=== PATIENT | male | born 1960 | race Caucasian/White ===

== ENCOUNTER 2016-09-21 09:09 | Inpatient (IN) | payer OTHER ==
[~2016-09-21] VITALS: Wt 67.4 kg
[2016-09-21] MEDS ORDERED: FURO20TA3 PO (10:13)
[2016-09-21] MEDS ORDERED: HYDR-3671 PO (10:14)
[2016-09-21 10:47] LABS: ADD SCAN DIFF NO
[2016-09-21 10:55] LABS: BASOPHILS % 0.3 % (0.0-2.0); EOSINOPHILS # 0.1 10^3/ul (0.0-0.5); EOSINOPHILS % 1.9 % (0.0-7.0); HEMATOCRIT 35.1 % (42.0-52.0); HEMOGLOBIN 11.8 g/dl (14.0-18.0); LYMPHOCYTES # 0.8 10^3/ul (0.8-2.9); LYMPHOCYTES % 25.6 % (15.0-51.0); MEAN CORPUSCULAR HEMOGLOBIN 32.6 pg (29.0-33.0); MEAN CORPUSCULAR HGB CONC 33.6 g/dl (32.0-37.0); MEAN PLATELET VOLUME 9.1 fl (7.4-10.4); MONOCYTE # 0.3 10^3/ul (0.3-0.9); MONOCYTES % 8.6 % (0.0-11.0); NEUTROPHIL # 2.1 10^3/ul (1.6-7.5); NEUTROPHILS % 63.3 % (39.0-77.0); PLATELET COUNT 138 10^3/UL (140-415); RED BLOOD COUNT 3.62 10^6/ul (4.70-6.10); RED CELL DISTRIBUTION WIDTH 15.1 % (11.5-14.5); WHITE BLOOD COUNT 3.2 10^3/ul (4.8-10.8)
[2016-09-21 11:29] LABS: POTASSIUM 3.6 mmol/L (3.5-5.1)
[2016-09-21 11:32] LABS: CALCIUM 8.5 mg/dl (8.4-10.2); CREATININE 0.69 mg/dl (0.61-1.24)
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
[2016-09-21] MEDS ORDERED: LOPERAMIDE 2 MG CAP PO ONE (15:00)
[2016-09-21] MEDS ORDERED: ACETAMINOPHEN 325 MG TAB PO PRN (15:30)
[2016-09-21] MEDS ORDERED: ONDANSETRON 4 MG INJ IV PRN ×2 (15:30→18:00)
[2016-09-21 16:30] VITALS: TEMP 98.6
--- NOTE | 2016-09-21 17:32 | HP ---
Date/Time of Note Date/Time of Note DATE: 09/21/16 TIME: 17:21 Assessment/Plan VTE Prophylaxis VTE Prophylaxis Intervention: heparin Assessment/Plan Assessment/Plan 55yo M with 1. Chronic Leg ulcer 2. Severe uncontrolled profuse diarrhea 3. Hepatitis C 4. Homeless 5. Leukopenia and thrombocytopenia PLAN: * admit / stool cultures / c-diff / empiric oral flagyl * podiatry and wound care consults / wound cultures / no abx for now * case mgt for placement * IVF and supportive care Prophylaxis: heparin and pepcid HPI/ROS Admit Date/Time Admit Date/Time 09/21/16 Hx of Present Illness PRESENTING COMPLAINT: Uncontrolled severe diarrhea HISTORY OF PRESENTING COMPLAINT: 55-year-old homeless male who states he lives on the streets came to the emergency room today because of severe diarrhea that he cannot control. He has had a leg ulcer on his left leg for a long time. Note that the history is very sketchy at this time because the patient has just had a large profuse bowel movement that he could not control and is extremely foul-smelling and as such the patient wants this to be taken care of before he would speak further. But apparently has had this when his left leg for a long time he was just seen in the emergency room at [facility] and discharged. He was down antibiotics. The timing of his diarrhea is not also clear however patient does report that he cannot control it and it is watery and foul- smelling he denies fever though he has been feeling very lethargic and weak and as such she is here in the emergency room. He is requesting a wheelchair to help him when he is being discharged. ROS 12 point review if systems was done and pertinent findings are as noted. PMH/Family/Social Past Medical History * Leg ulcer * hep C Past Surgical History Past Surgical Hx: no surgical history Family History Significant Family History: no pertinent family hx Social History Drug Use: marijuana, other (prev drug use) Exam/Review of Systems Vital Signs Vitals Vital Signs Date Time Temp Pulse Resp B/P Pulse Ox O2 Delivery O2 Flow Rate FiO2 09/21/16 16:30 98.6 77 18 132/77 98 Room Air Exam Exam GENERAL: Patient is asthenic, alert and oriented, anxious about continued diarrhea, has just had an episode. HEENT: Oropharynx is clear. There is no carotid bruit, no masses. Patient's pupils are equal, round and reactive to light bilaterally. Extraocular motions are intact. There is no scleral icterus. There is no facial asymmetry. NECK: Supple. LUNGS: Clear to auscultation bilaterally with good air entry. No Wheezes or crackles. HEART: S1, S2. No murmur, gallops or rubs. Regular rate and rhythm. ABDOMEN: Soft, nontender. Normoactive bowel sounds. There are no stigmata of chronic liver disease. BACK: no costovertebral angle tenderness. GENITOURINARY: Deferred. EXTREMITIES: Left lower extremity: Large open wound approximately 23 x 8 cm lateral lower leg above the ankle. Granulation tissue with a minimal amount of clear drainage but no purulent discharge. Mild tenderness. No fluctuance or subcutaneous crepitus. 3+ foot swelling. NEUROLOGIC: The patient has no lateralizing signs. Cranial nerves II-XII are intact. SKIN: Otherwise, unremarkable. Labs Result Diagram: 09/21/16 1030 09/21/16 1030 Procedures Procedures Laboratory Tests Test 09/21/16 10:30 White Blood Count 3.210^3/ul Red Blood Count 3.6210^6/ul Hemoglobin 11.8g/dl Hematocrit 35.1% Mean Corpuscular Volume 97.0fl Mean Corpuscular Hemoglobin 32.6pg Mean Corpuscular Hemoglobin Concent 33.6g/dl Red Cell Distribution Width 15.1% Platelet Count 49673^3/UL Mean Platelet Volume 9.1fl Neutrophils % 63.3% Lymphocytes % 25.6% Monocytes % 8.6% Eosinophils % 1.9% Basophils % 0.3% Nucleated Red Blood Cells % 0.0/100WBC Neutrophils # 2.110^3/ul Lymphocytes # 0.810^3/ul Monocytes # 0.310^3/ul Eosinophils # 0.110^3/ul Basophils # 0.010^3/ul Nucleated Red Blood Cells # 0.010^3/ul Sodium Level 140mmol/L Potassium Level 3.6mmol/L Chloride Level 105mmol/L Carbon Dioxide Level 26mmol/L Anion Gap 13 Blood Urea Nitrogen 12mg/dl Creatinine 0.69mg/dl Glucose Level 94mg/dl Calcium Level 8.5mg/dl Current Medications Medications (Trade) Dose Ordered Sig/Moises Route PRN Reason Start Time Stop Time Status Last Admin Dose Admin Loperamide HCl (Imodium Cap) 4 mg ONCE ONCE PO 09/21/16 15:00 09/21/16 15:01 DC 09/21/16 15:14 4 MG Ondansetron HCl (Zofran Inj) 4 mg BRIDGE ORDER PRN IV NAUSEA AND/OR VOMITING 09/21/16 15:30 09/22/16 15:29 Acetaminophen (Tylenol Tab) 650 mg ER BRIDGE PRN PO MILD PAIN/FEVER 09/21/16 15:30 09/22/16 15:29 BRYCE MONTALVO September 21, 2016 17:31
[2016-09-21 18:15] VITALS: BP 133/72; PULSE 64; RESP 16
[2016-09-21] MEDS ORDERED: HYDR-842 PO (18:35)
[2016-09-21 18:50] LABS: ALBUMIN 2.8 g/dl (3.3-4.9); BILIRUBIN,INDIRECT 0.2 mg/dl (0-1.1); BILIRUBIN,TOTAL 0.2 mg/dl (0.2-1.3); TOTAL PROTEIN 6.8 g/dl (6.1-8.1)
[2016-09-21] MEDS: SOD CHLORIDE 0.9% 1,000 ML IV SCH (21:00)
[2016-09-21] MEDS: metroNIDAZOLE 500 MG TAB PO SCH (22:00)
[2016-09-22] MEDS: FAMOTIDINE 20 MG TAB PO SCH ×4 (01:12→21:41)
[2016-09-22] MEDS: morphine 2 MG INJ IV PRN ×3 (01:20→20:25)
[2016-09-22] MEDS: SOD CHLORIDE 0.9% 1,000 ML IV SCH ×4 (01:30→18:28)
[2016-09-22 03:03] LABS: COCAINE NEGATIVE (NEGATIVE)
[2016-09-22 03:06] LABS: BARBITURATES Negative (NEGATIVE); BENZODIAZEPINES Negative (NEGATIVE)
[2016-09-22 03:07] LABS: OPIATES Negative (NEGATIVE)
[2016-09-22 03:21] LABS: CANNABINOIDS Positive (NEGATIVE)
[2016-09-22] MEDS: metroNIDAZOLE 500 MG TAB PO SCH ×4 (06:00→21:41)
[2016-09-22] MEDS ORDERED: PENDING SANTYL ORDER FOR WOUND CARE XX PRN (07:30)
[2016-09-22] MEDS ORDERED: COLLAGENASE 30 GM TUBE TOP PRN (07:30)
[2016-09-22] MEDS: COLLAGENASE 30 GM TUBE TOP SCH (09:00)
--- NOTE | 2016-09-22 09:30 | PN ---
Date/Time of Note Date/Time of Note DATE: 09/22/16 TIME: 09:30 Assessment/Plan VTE Prophylaxis VTE Prophylaxis Intervention: ambulation Lines/Catheters IV C[facility]ter Type [facility] Saline Lock Assessment/Plan Assessment/Plan 55yo M with 1. Chronic Leg ulcer 2. Severe uncontrolled profuse diarrhea: C-diff negative 3. Hepatitis C Cirrhosis 4. Homeless 5. Leukopenia and thrombocytopenia 6. Marijuana user 7. Imodium abuse? : per patient he takes imodium every day for the last 4 years 8. Non compliance PLAN: * Continue IVF / PO flagyl * Will get GI consult / no imodium for now / Patient may be having a rebound diarrhea * Continue supportive care Subjective 24 Hr Interval Summary Gastrointestinal: diarrhea Exam/Review of Systems Vital Signs Vitals Vital Signs Date Time Temp Pulse Resp B/P Pulse Ox O2 Delivery O2 Flow Rate FiO2 09/21/16 18:15 98.8 64 16 133/72 98 Room Air Intake and Output 09/21/16 09/21/16 09/22/16 15:00 23:00 07:00 Intake Total 340 ml Output Total 1000 ml Balance -660 ml Exam GENERAL: Patient is asthenic, alert and oriented, anxious about continued diarrhea HEENT: Oropharynx is clear. There is no carotid bruit, no masses. Patient's pupils are equal, round and reactive to light bilaterally. Extraocular motions are intact. There is no scleral icterus. There is no facial asymmetry. NECK: Supple. LUNGS: Clear to auscultation bilaterally with good air entry. No Wheezes or crackles. HEART: S1, S2. No murmur, gallops or rubs. Regular rate and rhythm. ABDOMEN: Soft, nontender. Normoactive bowel sounds. There are no stigmata of chronic liver disease. BACK: no costovertebral angle tenderness. GENITOURINARY: Deferred. EXTREMITIES: Left lower extremity: Large open wound approximately 23 x 8 cm lateral lower leg above the ankle. Granulation tissue with a minimal amount of clear drainage but no purulent discharge. Mild tenderness. No fluctuance or subcutaneous crepitus. 3+ foot swelling. NEUROLOGIC: The patient has no lateralizing signs. Cranial nerves II-XII are intact. SKIN: Otherwise, unremarkable. PSYCH: belligerent and demanding for imodium, uncooperative Results Result Diagram: 09/21/16 1030 09/21/16 1030 Results 24 hrs Laboratory Tests Test 09/21/16 10:30 09/21/16 16:30 09/22/16 01:30 White Blood Count 3.2 L Red Blood Count 3.62 L Hemoglobin 11.8 L Hematocrit 35.1 L Mean Corpuscular Volume 97.0 Mean Corpuscular Hemoglobin 32.6 Mean Corpuscular Hemoglobin Concent 33.6 Red Cell Distribution Width 15.1 H Platelet Count 138 L Mean Platelet Volume 9.1 Neutrophils % 63.3 Lymphocytes % 25.6 Monocytes % 8.6 Eosinophils % 1.9 Basophils % 0.3 Nucleated Red Blood Cells % 0.0 Neutrophils # 2.1 Lymphocytes # 0.8 Monocytes # 0.3 Eosinophils # 0.1 Basophils # 0.0 Nucleated Red Blood Cells # 0.0 Sodium Level 140 Potassium Level 3.6 Chloride Level 105 Carbon Dioxide Level 26 Anion Gap 13 Blood Urea Nitrogen 12 Creatinine 0.69 Glucose Level 94 Calcium Level 8.5 Total Bilirubin 0.2 Direct Bilirubin 0.00 Indirect Bilirubin 0.2 Aspartate Amino Transf (AST/SGOT) 79 H Alanine Aminotransferase (ALT/SGPT) 65 Alkaline Phosphatase 210 H Total Protein 6.8 Albumin 2.8 L Urine Opiates Screen Negative Urine Barbiturates Negative Urine Amphetamines Screen NEGATIVE Urine Benzodiazepines Screen Negative Urine Cocaine Screen NEGATIVE Urine Cannabinoids Positive Medications Medications Current Medications Metronidazole 500 mg 500 mg Q8 PO ; Start 09/21/16 at 17:30 Sodium Chloride (NS) 1,000 ml @ 125 mls/hr Q8H IV ; Start 09/21/16 at 17:30 Famotidine (Pepcid) 20 mg BID PO Last administered on 09/22/16 01:12; Admin Dose 20 MG; Start 09/21/16 at 21:00 Ondansetron HCl (Zofran Inj) 4 mg Q6H PRN IV NAUSEA AND/OR VOMITING; Start 09/21 at 18:00 Morphine Sulfate (morphine) 2 mg Q4H PRN IV PAIN Last administered on 09/22/16 01:20; Admin Dose 2 MG; Start 09/21/16 at 19:30 Collagenase (Santyl) 1 applic DAILY TOP ; Start 09/22/16 at 09:00 Collagenase (Santyl) 1 applic PRN PRN TOP WOUND CARE; Start 09/22/16 at 07:30 BRYCE MONTALVO September 22, 2016 09:30
[2016-09-22 14:56] LABS: ADD SCAN DIFF NO
[2016-09-22 14:58] LABS: BASOPHILS % 0.5 % (0.0-2.0); EOSINOPHILS # 0.1 10^3/ul (0.0-0.5); EOSINOPHILS % 1.6 % (0.0-7.0); HEMATOCRIT 37.6 % (42.0-52.0); HEMOGLOBIN 12.9 g/dl (14.0-18.0); LYMPHOCYTES # 1.2 10^3/ul (0.8-2.9); MEAN CORPUSCULAR HEMOGLOBIN 32.8 pg (29.0-33.0); MEAN CORPUSCULAR HGB CONC 34.3 g/dl (32.0-37.0); MEAN CORPUSCULAR VOLUME 95.7 fl (82.0-101.0); MEAN PLATELET VOLUME 8.8 fl (7.4-10.4); MONOCYTE # 0.3 10^3/ul (0.3-0.9); MONOCYTES % 7.3 % (0.0-11.0); NEUTROPHIL # 2.6 10^3/ul (1.6-7.5); NEUTROPHILS % 62.1 % (39.0-77.0); PLATELET COUNT 192 10^3/UL (140-415); RED BLOOD COUNT 3.93 10^6/ul (4.70-6.10); RED CELL DISTRIBUTION WIDTH 15.6 % (11.5-14.5); WHITE BLOOD COUNT 4.3 10^3/ul (4.8-10.8)
[2016-09-22 15:25] LABS: CREATININE 0.8 mg/dl (0.61-1.24)
[2016-09-22] MEDS ORDERED: LACTULOSE 30ML CUP PO PRN (19:00)
[2016-09-22] MEDS ORDERED: HYDROCODONE/APAP (5/325) TAB PO PRN (19:30)
[2016-09-22] MEDS ORDERED: POLYETHYLENE GLYCOL 3350 119 GM POWDER PO ONE (20:00)
[2016-09-22] MEDS ORDERED: PEG/ELECTROLYTES 4L BTL PO ONE (20:00)
--- NOTE | 2016-09-22 20:58 | CONS ---
DATE OF ADMISSION: 09/21/2016 DATE OF CONSULTATION: TYPE OF CONSULTATION: Gastroenterology. Dear Dr. Montalvo: Thank you for asking me to see Mr. Pickard in GI consultation. HISTORY OF PRESENT ILLNESS: The patient, as you know, is a 55-year-old white gentleman who is admit dawood to the hospital because of a nonhealing persistent ulcer in the left leg. GI consultation is re quested because of the chronic diarrhea, which he has been having for the past 4 years. He has up t o 6 to 8 to 10 bowel movements a day, loose and watery. No blood in the stools. No lactose intoler ance. He has history of hepatitis C. The stool has been negative for C. difficile toxin this hospi talization. MEDICATIONS: At home includes: 1. Atarax. 2. Furosemide. 3. Imodium. SOCIAL HISTORY: He works as an electrician office. He does not smoke or drink. He smokes marijuana. He is single, not , transsexual. PAST SURGICAL HISTORY: He had a cholecystectomy. PHYSICAL EXAMINATION: GENERAL: The patient is a 55-year-old white gentleman who at this time is alert, well built, is bruce l. VITAL SIGNS: Afebrile. CARDIOVASCULAR: Normal heart sounds. RESPIRATORY: Normal breath sounds. ABDOMEN: Showed unremarkable findings. EXTREMITIES: Left leg shows severe ulcer, which is covered with a Band-Aid at this time. LABORATORY WORKUP: Potassium 4.0 as of today. ALT 79, AST 65, alkaline phosphatase 210. WBC count 4300, hemoglobin 12.9, platelet 192,000. No imaging studies are available. CLINICAL IMPRESSION: Chronic diarrhea. Clostridium difficile is negative. Etiology is not very cl ear. He could have inflammatory bowel disease. He could have a colorectal neoplasm, diverticulitis , doubt opportunistic infections. He does have hepatitis C. Small bowel disease, chronic pancreatitis should all be ruled out. Rule out parasitic causes as wel l. PLAN: At this time, proceed with a colonoscopy. I will give further recommendations after the col onoscopy. Dictated By: ADRIANE MEJIA MD NC/NTS Conf#: [id number] DID#: [id number] CC: ADRIANE MEJIA MD; BRYCE MONTALVO MD;*EndCC*
[2016-09-22] MEDS: LORAZEPAM 2 MG INJ IV PRN (21:35)
[2016-09-22] MEDS: LACTULOSE 30ML CUP PO SCH ×2 (21:40→23:00)
[2016-09-23] MEDS: LACTULOSE 30ML CUP PO SCH ×5 (01:00→22:48)
[2016-09-23] MEDS: morphine 2 MG INJ IV PRN ×4 (01:26→18:44)
[2016-09-23] MEDS: SOD CHLORIDE 0.9% 1,000 ML IV SCH ×3 (01:30→19:03)
[2016-09-23] MEDS: LORAZEPAM 2 MG INJ IV PRN ×2 (02:20→21:26)
[2016-09-23] MEDS: metroNIDAZOLE 500 MG TAB PO SCH ×3 (06:00→21:34)
[2016-09-23 08:00] VITALS: BP 98/55; RESP 16
[2016-09-23] MEDS: FAMOTIDINE 20 MG TAB PO SCH ×2 (09:00→21:27)
[2016-09-23] MEDS: COLLAGENASE 30 GM TUBE TOP SCH (09:00)
[2016-09-23] MEDS ORDERED: METR500T PO (09:21)
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
[2016-09-23 14:54] LABS: ADD SCAN DIFF NO
[2016-09-23 14:56] LABS: BASOPHILS % 0.5 % (0.0-2.0); EOSINOPHILS # 0.1 10^3/ul (0.0-0.5); HEMOGLOBIN 12.1 g/dl (14.0-18.0); LYMPHOCYTES # 1.3 10^3/ul (0.8-2.9); MEAN CORPUSCULAR HGB CONC 34.6 g/dl (32.0-37.0); MEAN CORPUSCULAR VOLUME 95.4 fl (82.0-101.0); MEAN PLATELET VOLUME 8.6 fl (7.4-10.4); MONOCYTE # 0.4 10^3/ul (0.3-0.9); MONOCYTES % 8.8 % (0.0-11.0); NEUTROPHIL # 2.3 10^3/ul (1.6-7.5); NEUTROPHILS % 56.2 % (39.0-77.0); PLATELET COUNT 169 10^3/UL (140-415); RED BLOOD COUNT 3.67 10^6/ul (4.70-6.10); RED CELL DISTRIBUTION WIDTH 15.4 % (11.5-14.5)
[2016-09-23 15:10] LABS: POTASSIUM 3.5 mmol/L (3.5-5.1)
[2016-09-23 15:12] LABS: INR 0.97; PROTIME 12.9 Sec (12.2-14.2)
[2016-09-23 15:13] LABS: CREATININE 0.83 mg/dl (0.61-1.24); PARTIAL THROMBOPLASTIN TIME 33.8 Sec (25.0-35.0)
[2016-09-23 15:14] LABS: CALCIUM 8.6 mg/dl (8.4-10.2)
[2016-09-23] MEDS ORDERED: POTASSIUM CHLORIDE (SR) 10 MEQ TAB PO SCH (18:30)
[2016-09-23] MEDS ORDERED: POLYETHYLENE GLYCOL 17 GM PACKET PO ONE (18:30)
[2016-09-23] MEDS ORDERED: POTASSIUM CHLORIDE 50 ML IVPB PRN (18:30)
--- NOTE | 2016-09-23 18:40 | PN ---
DATE: HISTORY OF PRESENT ILLNESS: The patient is a 55-year-old white gentleman seen by me yesterday sb woodruff of chronic diarrhea. Yesterday, he agreed to have a colonoscopy, but today he refused to have a colonoscopy. Apparently, the patient has been uncooperative and he is abusive to the nurses and to the staff members; however, upon discussion from the social welfare administrator, the patient has agreed for a col onoscopy. CLINICAL IMPRESSION: Chronic diarrhea, etiology unknown, rule out inflammatory bowel disease, ische will colitis, colorectal neoplasm. PLAN: Colonoscopy. The patient agrees. Dictated By: ADRIANE KIRKLAND/JOSE C Conf#: [id number] DID#: [id number]
[2016-09-24] MEDS: SOD CHLORIDE 0.9% 1,000 ML IV SCH ×2 (01:30→09:10)
[2016-09-24] MEDS: morphine 2 MG INJ IV PRN ×2 (01:53→12:04)
[2016-09-24] MEDS: metroNIDAZOLE 500 MG TAB PO SCH ×2 (06:00→14:15)
[2016-09-24] MEDS: COLLAGENASE 30 GM TUBE TOP SCH (09:00)
[2016-09-24] MEDS: FAMOTIDINE 20 MG TAB PO SCH (09:00)
--- NOTE | 2016-09-24 11:59 | CONS ---
DATE OF ADMISSION: 09/21/2016 DATE OF CONSULTATION: CHIEF COMPLAINT: Diarrhea. The patient has history of chronic diarrhea, unresponsive to routine therapy. Stool is negative for C. difficile toxin. The patient continues to have diarrhea. PHYSICAL EXAMINATION: GENERAL: The patient appears alert, not in distress. Potassium 3.6 yesterday. The imaging studies not done. IMPRESSION: Chronic diarrhea. Patient was advised to have a colonoscopy despite several efforts to make him undergo colonoscopy, h e has refused a colonoscopy. PLAN: Recommend further workup. He can probably go to another center for a second opinion. Dictated By: ADRIANE MEJIA MD NC/NTS Conf#: [id number] DID#: [id number] CC: BRYCE MONTALVO MD;*EndCC*
[2016-09-24] MEDS ORDERED: LOPERAMIDE 2 MG CAP PO PRN (13:00)
[2016-09-24] MEDS ORDERED: METAM PO (13:08)
[2016-09-24] MEDS ORDERED: IMO2 PO (13:08)
[2016-09-24] MEDS ORDERED: PSYLLIUM (SUGAR FREE) PACKET PO SCH (21:00)
[2016-09-24] MEDS ORDERED: PSYLLIUM 28% PACKET PO SCH (21:00)
--- NOTE | 2016-09-25 05:50 | DS ---
DATE OF ADMISSION: 09/21/2016 DATE OF DISCHARGE: 09/24/2016 PRIMARY CARE PHYSICIAN: Unknown. APNS: Dr. Hannah DIAGNOSIS ON ADMISSION: Chronic diarrhea. DIAGNOSES ON DISCHARGE: 1. Chronic diarrhea. 2. Nonadherence. 3. Chronic hepatitis C. 4. Chronic left leg ulcer. 5. Substance abuse, marijuana and tobacco. 6. Leukopenia. HOSPITAL COURSE: This is a nonadherent 55-year-old gentleman who presents with chronic diarrhea. Radha segovia refused colonoscopy. He is stable and fit for discharge. There is no evidence of GI bleed, fever, or abdominal pain. He is hungry and wants to eat and is to lerating diet. No acute abdominal issues. The etiology is undetermined. He is 55 years of age. Radha segovia denies any issues with milk, but I am not so sure. The differential includes colon cancer, and he was instructed by ourselves and gastrology to proceed with colonoscopy, but he refuses. Other etio logy include inflammatory bowel disease, diverticular disease, potentially opportunistic infections, chronic pancreatitis, small bowel disease, and parasitic diseases. At this point, the patient refu ses to believe he has any other issues. He believes this is chronic hepatitis C. Definitive testin g at this time has been negative. The patient has been completely nonadherence to instructions. He has been belligerent with staff, s till smoking in the hospital room, cursing, throwing furniture and stool at the staff. There is no reason for him to remain in the hospital. He does not wish to have any further testing. He is medi gabriela stable and fit for discharge. He was also seen by transition social worker and case management manager. He was o ffered multiple discharge options. He is awake, alert, ambulatory. DISCHARGE PLAN: The patient will be discharged. He may follow up with his primary care physician a s he wants or as he chooses. He may follow up with GI of his choice should he decide he wants a col onoscopy. DIET: Regular. ACTIVITY: As before. ALLERGIES: NO KNOWN DRUG ALLERGIES. CODE STATUS: FULL. CONDITION: Stable. REASON FOR ADMISSION: Chronic diarrhea. PENDING TESTS: None. FUNCTIONAL STATUS: The patient is awake, alert, and aware of his disposition. LABORATORY DATA: White cell count of 4, hemoglobin and hematocrit of 12 and 35, platelets of 160. INR 0.9. Tox screen positive for marijuana. HIV test is negative. CMP unremarkable except an AST mildly elevated at 79. Alkaline phosphatase of 210, which is consistent with chronic liver disease. Albumin of 2.8. Stool culture and C. diff testing negative. Wound culture of his left leg was a contaminated specimen. No further testing required. Dictated By: JENIFER MARSH MD AC/NTS Conf#: [id number] DID#: [id number] CC: ADRIANE HANNAH MD;*EndCC*
== END 2016-09-24 15:57 | disposition home or self-care (01) | DRG 392 ==
LOC: E/R 09:09 → PP2 15:04 → E/R 17:55
PROVIDERS: ADMIT Family Medicine; ATTEND Family Medicine
DX: K52.9 Noninfective gastroenteritis and colitis, unspecified (principal); D69.6 Thrombocytopenia, unspecified; K74.60 Unspecified cirrhosis of liver; L97.229 Non-pressure chronic ulcer of left calf with unspecified severity; B18.2 Chronic viral hepatitis C; Z91.19 Patient's noncompliance with other medical treatment and regimen; Z59.0 Homelessness; D72.819 Decreased white blood cell count, unspecified; F12.90 Cannabis use, unspecified, uncomplicated; Z72.0 Tobacco use
CPT/HCPCS: 80048; 80076; 80307; 84132; 85025; 85610; 85730; 86703; 87045; 87070; 87075; 87177; J2060; J2270; J7030